=== PATIENT | female | born 1990 | race Asian ===

== ENCOUNTER 2016-08-03 12:47 | Emergency (ER) | payer OTHER ==
[~2016-08-03] VITALS: Ht 162.6 cm; Wt 49.2 kg
[2016-08-03 13:51] LABS: BLOOD UREA NITROGEN 5 mg/dL (7-18)
[2016-08-03 15:17] LABS: IS PT STATUS REG ER OR PRE ER? YES
[2016-08-03 15:20] VITALS: BP 109/73
== END 2016-08-03 15:23 | disposition home or self-care (01) ==
LOC: ED 13:50
DX: R06.00 Dyspnea, unspecified (principal)
CPT/HCPCS: 36415; 71020; 80048; 82040; 84484; 84703; 85025; 85379; 93005; 99285

== ENCOUNTER → 2016-08-15 | Outpatient (CLI) | payer OTHER | END | disposition home or self-care (01) | LOC: CFH 07:07 | DX: I08.1 Rheumatic disorders of both mitral and tricuspid valves (principal); I37.1 Nonrheumatic pulmonary valve insufficiency | CPT/HCPCS: 93306 ==